=== PATIENT | male | born 1950 | race Caucasian/White ===

== ENCOUNTER 2016-12-22 | Outpatient (CLI) | payer MEDICARE | END 2016-12-22 21:37 | disposition critical access hospital (66) | DX: I46.9 Cardiac arrest, cause unspecified (principal) | CPT/HCPCS: A0425; A0433 ==

== ENCOUNTER 2016-12-22 21:50 | Emergency (ER) | payer MEDICARE ==
[2016-12-22] MEDS ORDERED: DOPamine 800 MG/500 ML 500 ML IV ONE (22:00)
[2016-12-22] MEDS ORDERED: EPINEPHrine 1 MG/ML AMP IVP STA (22:18)
[2016-12-22] MEDS ORDERED: EPINEPHrine ABBOJECT 1 MG/10 ML SYRINGE IVP ONE (22:18)
[2016-12-22] MEDS ORDERED: SODIUM BICARBONATE ABBOJECT 50 MEQ/50 ML SYRINGE IVP STA (22:19)
== END 2016-12-22 22:16 | disposition expired ==
DX: I46.9 Cardiac arrest, cause unspecified (principal); I10 Essential (primary) hypertension; I25.10 Atherosclerotic heart disease of native coronary artery without angina pectoris; I73.9 Peripheral vascular disease, unspecified; E11.9 Type 2 diabetes mellitus without complications; Z86.73 Personal history of transient ischemic attack (TIA), and cerebral infarction without residual deficits; Z99.2 Dependence on renal dialysis; Z95.5 Presence of coronary angioplasty implant and graft; Z95.1 Presence of aortocoronary bypass graft; Z79.02 Long term (current) use of antithrombotics/antiplatelets